=== PATIENT | female | born 1930 | race Caucasian/White ===

== ENCOUNTER → 2017-01-11 | Outpatient (CLI) | payer MEDICARE ==
[~2017-01-11] MED LIST: ADV250 IH; ALBU8.5H3 IH; CLIN300C3 PO; FURO20 PO; LEVO100T13 PO; LORA10TA7 PO; NATE120 PO; PERM1LIQ MC; SIMV40TA5 PO; SITA50 PO; TIOT4MIS2 IH
== END | disposition home or self-care (01) ==
LOC: RADPV 08:50
PROVIDERS: ATTEND Internal Medicine Critical Care Medicine
DX: J98.11 Atelectasis (principal); I70.0 Atherosclerosis of aorta; M47.819 Spondylosis without myelopathy or radiculopathy, site unspecified; M40.299 Other kyphosis, site unspecified
CPT/HCPCS: 71020